=== PATIENT | male | born 1945 | race Caucasian/White ===

== ENCOUNTER 2017-09-05 21:07 | Emergency (ER) | payer MEDICARE, MEDICAID ==
[~2017-09-05] VITALS: Ht 167.6 cm; Wt 90.9 kg
[~2017-09-05 21:07] MED LIST: ALPR-624 PO; ASPI81TA52 PO; CARV-50 PO; CHOL100010 PO; CITA20TA11 PO; COMIN IH; CYCL-394 PO; FURO-150 PO; GABA-338 PO; HYDR-2514 PO; LEVO25TA50 PO; LOSA25TA96 PO; OMEG500C PO; OMEP-84 PO; PRED10TA PO; ROSU10TA PO; ZOLP5TAB8 PO
[2017-09-05] MEDS ORDERED: aspirin 81mg tab.chew PO ONE (21:20)
[2017-09-05] MEDS ORDERED: morphine 4 MG/ML inj SYRINge IV ONE (21:20)
[2017-09-05] MEDS ORDERED: morphine 4 MG/ML inj SYRINge IM ONE (21:55)
[2017-09-05 22:22] LABS: BASOPHILS % (AUTO) 0.2 % (0-1); EOSINOPHILS # (AUTO) 0.2 X10'3 (0-0.9); EOSINOPHILS % (AUTO) 2.8 % (0-6); HEMATOCRIT 39.9 % (42.0-52.0); LYMPHOCYTES # (AUTO) 2.5 X10'3 (1.1-4.8); LYMPHOCYTES % (AUTO) 28.8 % (21-51); MEAN CORPUSCULAR HEMOGLOBIN 32.1 PG (27.0-31.0); MEAN CORPUSCULAR VOLUME 91.6 FL (78-98); MEAN PLATELET VOLUME 6.9 FL (7.4-10.4); MONOCYTES # (AUTO) 0.7 X10'3 (0-0.9); MONOCYTES % (AUTO) 7.9 % (2-12); NEUTROPHILS # (AUTO) 5.2 X10'3 (1.8-7.7); NEUTROPHILS % (AUTO) 60.3 % (42-75); PLATELET COUNT 220 X10'3 (140-440); RED BLOOD COUNT 4.36 X10'6 (4.70-6.10); RED CELL DISTRIBUTION WIDTH 12.8 % (11.5-14.5); WHITE BLOOD COUNT 8.6 X10'3 (4.5-11.0)
[2017-09-05 22:35] LABS: ALANINE AMINOTRANSFERASE 21 U/L (12-78); ALBUMIN 3.7 G/DL (3.4-5.0); ALBUMIN/GLOBULIN RATIO 1.1 (1.1-1.5); ALKALINE PHOSPHATASE 65 IU/L (46-116); ANION GAP 11 (8-16); ASPARTATE AMINO TRANSFERASE 13 U/L (10-37); BILIRUBIN,TOTAL 0.5 MG/DL (0.1-1.0); BLOOD UREA NITROGEN 19 MG/DL (7-18); BUN/CREATININE RATIO 19.2 (5.4-32.0); CALCIUM 9.1 MG/DL (8.5-10.1); CHLORIDE 105 MMOL/L (99-107); CREATININE 0.99 MG/DL (0.60-1.10); GLUCOSE 103 MG/DL (70-104); MAGNESIUM 1.7 MG/DL (1.5-2.4); POTASSIUM 3.6 MMOL/L (3.5-5.1); SODIUM 144 MMOL/L (135-145); TOTAL CARBON DIOXIDE 28.1 MMOL/L (24-32); TOTAL PROTEIN 7.1 G/DL (6.4-8.2); eGFR 75 ML/MIN
[2017-09-05 23:47] VITALS: BP 160/65
[2017-09-06] MEDS ORDERED: NAPR-56 PO (00:31)
== END 2017-09-06 00:26 | disposition home or self-care (01) ==
LOC: ER 21:07
DX: M25.512 Pain in left shoulder (principal); F15.10 Other stimulant abuse, uncomplicated; G62.9 Polyneuropathy, unspecified; I50.9 Heart failure, unspecified; Z79.82 Long term (current) use of aspirin; Z79.899 Other long term (current) drug therapy
CPT/HCPCS: 36415; 71045; 73030; 80053; 83735; 83880; 84484; 85025; 85651; 93005; 96372; 99285; J2270

== ENCOUNTER 2017-09-17 01:11 | Emergency (ER) | payer OTHER, MEDICARE, MEDICAID ==
[~2017-09-17] VITALS: Ht 167.6 cm; Wt 76.8 kg
[~2017-09-17 01:11] MED LIST changes: +NAPR-56 PO
[2017-09-17 01:12] VITALS: BP 147/75
== END 2017-09-17 02:30 | disposition home or self-care (01) ==
LOC: ER 01:11
DX: M25.512 Pain in left shoulder (principal); G89.29 Other chronic pain; F15.10 Other stimulant abuse, uncomplicated; G62.9 Polyneuropathy, unspecified; I25.10 Atherosclerotic heart disease of native coronary artery without angina pectoris; I11.0 Hypertensive heart disease with heart failure; I50.9 Heart failure, unspecified; I25.2 Old myocardial infarction; J44.9 Chronic obstructive pulmonary disease, unspecified; Z87.891 Personal history of nicotine dependence; Z98.890 Other specified postprocedural states; Z79.82 Long term (current) use of aspirin; Z79.899 Other long term (current) drug therapy
CPT/HCPCS: 99284

== ENCOUNTER 2021-12-17 06:08 | Day surgery (SDC) | payer OTHER ==
[2021-12-17] VITALS (7 sets, daily range): BP systolic 129–151; BP diastolic 50–74
[~2021-12-17] VITALS: Ht 167.6 cm; Wt 108.0 kg
[~2021-12-17 06:08] MED LIST changes: -CITA20TA11 PO; +CITA20TA28 PO; -NAPR-56 PO; -ROSU10TA PO; +ROSU10TA2 PO
[2021-12-17] MEDS ORDERED: normal saline 1000ml 1,000 ML IV PRN (06:30)
[2021-12-17] MEDS ORDERED: FLO0.4C PO (07:12)
[2021-12-17] MEDS ORDERED: HYDR-3965 PO (07:12)
[2021-12-17] MEDS ORDERED: FINA5TAB11 PO (07:12)
[2021-12-17] MEDS ORDERED: MIRT-88 PO (07:12)
[2021-12-17] MEDS ORDERED: Heparin SUBCUT (07:12)
[2021-12-17] MEDS ORDERED: PANT-47 PO (07:12)
[2021-12-17] MEDS ORDERED: NICO-631 TD (07:12)
[2021-12-17] MEDS ORDERED: HYDR100T27 PO (07:12)
[2021-12-17] MEDS ORDERED: FOLI1TAB27 PO (07:12)
[2021-12-17] MEDS ORDERED: THIA100T66 PO (07:12)
[2021-12-17] MEDS ORDERED: Vitamin B12 PO (07:12)
[2021-12-17] MEDS ORDERED: ATOR80TA PO (07:12)
[2021-12-17] MEDS ORDERED: TROSPIUM (07:12)
[2021-12-17] MEDS ORDERED: SUCR1TAB PO (07:12)
[2021-12-17 08:02] LABS: ALBUMIN 2.9 G/DL (3.4-5.0); ANION GAP 4 (8-16); BLOOD UREA NITROGEN 30 MG/DL (7-18); BUN/CREATININE RATIO 15.5 (5.4-32.0); CALCIUM 8.9 MG/DL (8.5-10.1); CHLORIDE 104 MMOL/L (99-107); CREATININE 1.94 MG/DL (0.60-1.10); GLUCOSE 120 MG/DL (70-104); POTASSIUM 4.3 MMOL/L (3.5-5.1); SODIUM 140 MMOL/L (135-145); TOTAL CARBON DIOXIDE 31.7 MMOL/L (24-32); eGFR 34 ML/MIN
[2021-12-17 08:06] LABS: BASOPHILS % (AUTO) 1.1 % (0-1); EOSINOPHILS # (AUTO) 0.1 X10'3 (0-0.9); EOSINOPHILS % (AUTO) 2.3 % (0-6); HEMATOCRIT 30.6 % (42.0-52.0); HEMOGLOBIN 10.2 g/dl (14.0-17.9); LYMPHOCYTES # (AUTO) 1.1 X10'3 (1.1-4.8); LYMPHOCYTES % (AUTO) 22.9 % (21-51); MEAN CORPUSCULAR HEMOGLOBIN 31.2 PG (27.0-31.0); MEAN CORPUSCULAR HGB CONC 33.4 g/dL (33.0-36.5); MEAN CORPUSCULAR VOLUME 93.4 FL (78-98); MEAN PLATELET VOLUME 7.2 FL (7.4-10.4); MONOCYTES # (AUTO) 0.5 X10'3 (0-0.9); MONOCYTES % (AUTO) 11.3 % (2-12); NEUTROPHILS # (AUTO) 2.9 X10'3 (1.8-7.7); NEUTROPHILS % (AUTO) 62.4 % (42-75); PLATELET COUNT 191 X10'3 (140-440); RED BLOOD COUNT 3.28 X10'6 (4.70-6.10); RED CELL DISTRIBUTION WIDTH 13.2 % (11.5-14.5); WHITE BLOOD COUNT 4.7 X10'3 (4.5-11.0)
[2021-12-17] MEDS ORDERED: heparin 1,000unit/ml 10ml vial 10 ML ONE (08:13)
[2021-12-17] MEDS ORDERED: midazolam 1 mg/ML 2ml injection ONE (08:13)
[2021-12-17] MEDS ORDERED: LIDOcaine 1%/PF 5ML 10 MG/ML VIAL ONE (08:13)
[2021-12-17] MEDS ORDERED: fentaNYL/PF 50MCG/1 ML 2ML syringe ONE (08:13)
== END 2021-12-17 11:15 ==
LOC: SSTAY O 06:08
PROVIDERS: ATTEND Radiology Vascular & Interventional Radiology
DX: N18.6 End stage renal disease (principal); Z87.891 Personal history of nicotine dependence; Z72.89 Other problems related to lifestyle; F15.90 Other stimulant use, unspecified, uncomplicated; Z79.899 Other long term (current) drug therapy
CPT/HCPCS: 36415; 36558; 76937; 77001; 80048; 82948; 85025; 99152; 99153; C1750; C1769; C1894; J1644; J2250; J3010; J3490; J7030; A4620; A6213; A6258; A6402; A6449; A9270